=== PATIENT | female | born 1995 | race Caucasian/White ===

== ENCOUNTER 2021-07-28 08:00 | Inpatient (IN) ==
[2021-07-28] MEDS ORDERED: *HR* Nalbuphine 10 MG/ML AMPUL IV PRN (08:27)
[2021-07-28] MEDS ORDERED: Naloxone 0.4 MG/ML INJ IVP PRN (08:27)
[2021-07-28] MEDS ORDERED: Azithromycin 500 MG in 0.9 % Sodium Chloride 250 ML IVPB PRN (08:27)
[2021-07-28] MEDS ORDERED: Famotidine 20 MG/2 ML VIAL IVP PRN (08:27)
[2021-07-28] MEDS ORDERED: Metoclopramide 10 MG/2 ML VIAL IVP PRN (08:27)
[2021-07-28] MEDS ORDERED: Ondansetron 4 MG/2 ML VIAL IVP PRN (08:27)
[2021-07-28] MEDS ORDERED: Oxytocin 20 units/ LR 1000 mL 20 UNIT/1,000 ML BAG IVC SCH ×2 (08:30→19:48)
[2021-07-28 09:43] LABS: Basophils % 0.2 %; Eosinophils % 0.2 %; Hematocrit 34.7 % (35.3-44.9); Hemoglobin 11.1 g/dL (11.5-15.4); Immature Granulocytes % 0.4 % (0-4); Lymphocytes # 1.8 K/mcL (0.6-4.6); Lymphocytes % 16.9 %; Mean Corpuscular Hemoglobin 25.3 pg (28.0-33.3); Mean Platelet Volume 12.3 fL (9.4-12.4); Monocytes # 0.7 K/mcL (0.0-1.3); Monocytes % 6.7 %; Neutrophils # 8.1 K/mcL (1.6-8.9); Platelet Count 177 K/mcL (140-400); Red Blood Count 4.39 M/mcL (3.82-4.97); Red Cell Distribution Width 14.6 % (11.5-14.5); Segmented Neutrophils % 75.6 %; White Blood Count 10.6 K/mcL (4.3-11.1)
[2021-07-28] MEDS ORDERED: EPHEDrine 50 MG/ML VIAL IVP PRN (09:48)
[2021-07-28] MEDS ORDERED: Epidural Premix (fent/bupiv) 110 ML EP SCH (10:00)
[2021-07-28 10:10] LABS: Alanine Aminotransferase 8 Units/L (7-52); Aspartate Amino Transferase 15 Units/L (13-39); BUN/Creatinine Ratio 13 (6-26); Blood Urea Nitrogen 8 mg/dL (6-20); Lactate Dehydrogenase 147 Units/L (140-271); Uric Acid 6.7 mg/dL (2.3-7.6); eGFR For African Americans > 60 (> 60); eGFR For Non-African Americans > 60 (> 60)
[2021-07-28 10:15] LABS: Amphetamine Screen,Urine Negative ng/mL (Cutoff=1000); Barbiturate Screen,Urine Negative ng/mL (Cutoff=200); Benzodiazepines Screen,Urine Negative ng/mL (Cutoff=200); Cannabinoid Screen,Urine Negative ng/mL (Cutoff = 50); Cocaine Screen,Urine Negative ng/mL (Cutoff= 300); Creatinine,Urine 197 mg/dL; Opiate Screen,Urine Negative ng/mL (Cutoff=300); Phencyclidine Screen,Urine Negative ng/mL (Cutoff=25); Protein/Creatinine Ratio,Urine 0.17 mg/mg (0.00-0.20)
[2021-07-28 10:16] LABS: Influenza A PCR Negative (Negative); Influenza B PCR Negative (Negative); Resp. Syncytial Virus PCR Negative (Negative)
[2021-07-28] MEDS: Ringers Solution, Lactated 1,000 ML IVC SCH ×3 (10:20→17:48)
[2021-07-28 10:47] LABS: SARS-CoV-2 by PCR (In House) Negative (Negative)
[2021-07-28] MEDS ORDERED: Methylergonovine 0.2 MG/ML AMPUL IM ONE (18:19)
[2021-07-28] MEDS ORDERED: Lanolin 7 G OINT...G. TP PRN (19:48)
[2021-07-28] MEDS ORDERED: Benzocaine/Menthol 56 GM AEROSOL SPRAY TP PRN (19:48)
[2021-07-28] MEDS ORDERED: Measles/Mumps/Rubella Vacc 0.5 ML VIAL SQ PRN (19:48)
[2021-07-28] MEDS ORDERED: Ondansetron ODT 4 MG TAB.RAPDIS SL PRN (19:48)
[2021-07-28] MEDS ORDERED: Rho Immune Globulin 1,500 UNIT SYRINGE IM PRN (19:48)
[2021-07-28] MEDS: Ibuprofen 600 MG TABLET PO SCH (21:53)
[2021-07-28] MEDS: Acetaminophen 325 MG TABLET PO SCH (21:53)
[2021-07-29 04:48] VITALS: TEMP 98.1
[2021-07-29] MEDS: Ibuprofen 600 MG TABLET PO SCH ×2 (06:16→11:05)
[2021-07-29] MEDS: Acetaminophen 325 MG TABLET PO SCH (06:16)
[2021-07-29] MEDS ORDERED: Prenatal Vit/FA 1 EACH TABLET PO SCH (09:00)
[2021-07-29 09:34] VITALS: BP 120/78; PULSE 86; O2SAT 99
== END 2021-07-29 18:20 | disposition home or self-care (01) | DRG 807 ==
LOC: 1NENULAB 08:03 → 1NENUOBS 21:24
PROVIDERS: ADMIT Student in an Organized Health Care Education/Training Program; ATTEND Student in an Organized Health Care Education/Training Program